=== PATIENT | female | born 1965 | race Caucasian/White ===

== ENCOUNTER 2020-06-09 16:51 | Emergency (ER) | payer MEDICAID ==
[~2020-06-09] VITALS: Ht 180.3 cm; Wt 107.0 kg
[~2020-06-09 16:51] MED LIST: NORCO10T PO
[2020-06-09 17:08] VITALS: BP 161/90
[2020-06-09] MEDS ORDERED: HYDROcodone/acetaminophen 5mg/325mg tablet PO ONE (18:00)
--- NOTE | 2020-06-09 18:24 | NUR ---
RONAL DESHPANDE ENEDINA WRIST SPINT ORDERED PER PRTO ORDERS
[2020-06-09] MEDS ORDERED: HYDR-3965 PO (18:46)
== END 2020-06-09 18:53 | disposition home or self-care (01) ==
LOC: ER 16:52
DX: S92.251A Displaced fracture of navicular [scaphoid] of right foot, initial encounter for closed fracture (principal); G89.29 Other chronic pain; F32.9 Major depressive disorder, single episode, unspecified; Z72.89 Other problems related to lifestyle; Z88.5 Allergy status to narcotic agent; Z79.899 Other long term (current) drug therapy; W19.XXXA Unspecified fall, initial encounter; Y93.89 Activity, other specified; Y92.89 Other specified places as the place of occurrence of the external cause; Y99.8 Other external cause status
CPT/HCPCS: 29125; 73110; 99283